=== PATIENT | male | born 1985 | race African-American/Black ===

== ENCOUNTER 2022-03-23 18:56 | Emergency (ER) | payer SELFPAY ==
[2022-03-23 19:45] VITALS: BP 103/55; PULSE 77; RESP 20; TEMP 97.8; BMI 22.8
== END 2022-03-23 21:31 | disposition home or self-care (01) ==
LOC: JER 18:56
DX: R68.89 Other general symptoms and signs (principal); Z59.00 Homelessness unspecified
CPT/HCPCS: 99282-25